=== PATIENT | male | born 1955 | race American Indian/Alaskan Native ===

== ENCOUNTER 2022-06-02 08:25 | Day surgery (SDC) | payer MEDICARE, OTHER ==
[~2022-06-02] VITALS: Ht 167.6 cm; Wt 110.7 kg
[~2022-06-02 08:25] MED LIST: ANTIFUNGAL30 GM TOP; ASPIRIN EC81 MG PO; FENOFIBRATE54 MG PO; LISINOPRIL2.5 MG PO; LORATADINE10 MG PO; OMEGA-31000 MG PO; PERCOCET 7.5-31 EACH PO; TERBINAFINE HC250 MG PO; VITAMIN D5000 UNIT PO
[2022-06-02] MEDS ORDERED: GLIPIZIDE10 MG PO (08:52)
[2022-06-02] MEDS ORDERED: [UNRECOGNIZED DRUG - OTHER] (08:53)
[2022-06-02] MEDS ORDERED: ECHINACEA380 MG PO (08:54)
[2022-06-02] MEDS ORDERED: BEE POLLEN550 MG PO (08:54)
[2022-06-02] MEDS ORDERED: OZEMPIC1 MG/0.71 (09:05)
--- NOTE | 2022-06-02 10:27 | NUR ---
06/02/22 1027 Sheets,Rachel 1021 PT ARRIVED TO PACU ON 2L VIA MASK, PT WAKES EASILY AND DENIES CONCERNS. PT EASILY FALLS BACK TO SLEEP, RESP EVEN AND UNLABORED.
--- NOTE | 2022-06-03 08:17 | OR ---
[facility] [address], [place] [address] Signed DATE OF OPERATION: 06/02/2022 SURGEON: Tanisha Azevedo MD PREOPERATIVE DIAGNOSIS: Screening. POSTOPERATIVE DIAGNOSES: 1. Minimal sigmoid diverticulosis. 2. Minimal internal hemorrhoids. 3. A 7 mm polyp, mid right colon (snare). 4. Base of polyp, mid right colon. 5. A 4 mm polyp at distal transverse colon/130 cm. 6. A 4 mm polyp at proximal left colon/110 cm. 7. A 4 mm polyp at 80 cm/mid left colon. PROCEDURE: Colonoscopy with snare polypectomy and hot biopsy. ESTIMATED BLOOD LOSS: None. INDICATIONS: Kerri is a 67-year-old obese, diabetic gentleman with hypertension, asked to see me for a followup screening colonoscopy. He is pretty certain Dr. Rebollar helped him with a negative colonoscopy around age 57 in 2010. He currently has no lower GI complaints. There is no family history of colon cancer or polyps. In the office, I gave Melvin pamphlet on colonoscopy . He understands the nature of the test. There is risk including, but not limited to gas, bloating, crampy abdominal pain, bleeding, perforation requiring surgery, and missed diagnosis. We also discussed the need for IV conscious sedation. He had expressed understanding and wished to proceed. DESCRIPTION OF PROCEDURE: Kerri was taken into our endoscopy suite and placed in the left lateral decubitus position. He was given 4 mg of Versed and 150 mcg of fentanyl to cover the case. A digital rectal exam was performed and this was unremarkable. He had good sphincter tone. No external hemorrhoids. The adult colonoscope was introduced and advanced all around into the cecum under direct visualization of camera without difficulty. The scope was slowly withdrawn. We could easily see the appendiceal orifice and ileocecal valve. We used the snare to divide the polyp in the mid right colon. We then took a Electronically Signed By: TANISHA AZEVEDO MD 06/03/22 0817 PATIENT NAME: KERRI ROBERSON OPERATIVE REPORT DATE OF : 59 REPORT #: [id number] PHYSICIAN: TANISHA AZEVEDO MD PCP: BETTY REBOLLAR MD REPORT IS CONFIDENTIAL AND NOT TO BE RELEASED WITHOUT AUTHORIZATION [facility] [address] [place], [place] [address] Signed couple biopsies of the base with a hot biopsy forceps. The polyp moved over to the base of the ileocecal valve, which we suctioned through the scope and caught in our canister. The other polyps were removed with the help of hot biopsy forceps. We did see a few diverticula in the left colon. They were moderate in size, few in number, and scattered about. Once in the rectum, the scope had been retroflexed. He has minimal internal hemorrhoid columns. After this, the gas was suctioned out. The colonoscope removed. Kerri tolerated the procedure quite well. RECOMMENDATIONS: I will see Kerri back in my office in 7 to 14 days to review his results. Tanisha Azevedo MD ALB/MODL /[id number] cc: [facility] Chart Patient Tanisha Azevedo MD Copies: [facility] TANISHA AZEVEDO MD ~ Electronically Signed By: TANISHA AZEVEDO MD 06/03/22 0817 PATIENT NAME: KERRI ROBERSON OPERATIVE REPORT DATE OF : 59 REPORT #: [id number] PHYSICIAN: TANISHA AZEVEDO MD PCP: BETTY REBOLLAR MD REPORT IS CONFIDENTIAL AND NOT TO BE RELEASED WITHOUT AUTHORIZATION
--- NOTE | 2022-06-04 17:53 | PATH ---
[facility] [address], [place] [address] Signed SPECIMEN(S): A MID ASCENDING/RIGHT COLON POLYP SPECIMEN(S): B MID ASCENDING/RIGHT COLON POLYP SPECIMEN(S): C DISTAL TRANSVERSE COLON POLYP AT 130 CM SPECIMEN(S): D DESCENDING/LEFT COLON POLYP AT 110 CM SPECIMEN(S): E DESCENDING/LEFT COLON POLYP AT 80 CM SPECIMEN SOURCE: A. MID ASCENDING/RIGHT COLON POLYP B. MID ASCENDING/RIGHT COLON POLYP C. DISTAL TRANSVERSE COLON POLYP AT 130 CM D. DESCENDING/LEFT COLON POLYP AT 110 CM E. DESCENDING/LEFT COLON POLYP AT 80 CM CLINICAL HISTORY: Screening colonoscopy. Postop diagnosis: Diverticulosis, colon polyps, internal hemorrhoids FINAL PATHOLOGIC DIAGNOSIS: A. Colon, mid ascending/right, polypectomy: - Tubular adenoma. B. Colon, mid ascending/right, polypectomy #2: - Tubular adenoma. C. Colon, distal transverse at 130 cm, polypectomy: - Colonic mucosa with no significant pathologic changes. D. Colon, descending/left at 110 cm, polypectomy: - Tubular adenoma. E. Colon, descending/left at 80 cm, polypectomy: - Tubular adenoma. BRP:slc:[id number] MICROSCOPIC EXAMINATION: Histologic sections of all submitted blocks are examined by light microscopy. These findings, together with the gross examination, support the pathologic diagnosis. GROSS DESCRIPTION: Five specimens are received in five containers, labeled "DQ." A. The specimen, labeled "mid ascending/right colon," is received in formalin and consists of seven sol soft tissue fragments that measure 0.1 to 0.5 cm in greatest dimension. The specimen is entirely submitted in cassette (A1). PATIENT NAME: KERRI ROBERSON PATHOLOGY DATE OF : 59 REPORT #: [id number] PHYSICIAN: MARK BAER PCP: BETTY REBOLLAR MD REPORT IS CONFIDENTIAL AND NOT TO BE RELEASED WITHOUT AUTHORIZATION [facility] [address], [place] [address] Signed B. The specimen, labeled "mid ascending/right colon," is received in formalin and consists of four sol soft tissue fragments that measure 0.1 to 0.2 cm in greatest dimension. The specimen is entirely submitted in cassette (B1). C. The specimen, labeled "distal transverse colon," is received in formalin and consists of one sol soft tissue fragment that measures 0.6 cm in greatest dimension. The specimen is entirely submitted in cassette (C1). D. The specimen, labeled "descending/left colon polyp," is received in formalin and consists of one sol soft tissue fragment that measures 0.3 cm in greatest dimension. The specimen is entirely submitted in cassette (D1). E. The specimen, labeled "descending/left colon polyp," is received in formalin and consists of one sol soft tissue fragment that measures 0.3 cm in greatest dimension. The specimen is entirely submitted in cassette (E1). HH (under the direct supervision of a pathologist) The Gross Description was prepared using a voice recognition system. The report was reviewed for accuracy; however, sound-alike word errors, addition and/or deletions may occur. If there is any question about this report, please contact Client Services. PERFORMING LABORATORY: The technical component was performed by [employer], [address] [place] [id number] (CLIA# [id number]). Professional interpretation was performed by [employer], [address] [place] [id number] (CLIA# [id number]). Diagnostician: Francis Calvillo MD Pathologist Electronically Signed 06/04/2022 Copies: ~ PATIENT NAME: KERRI ROBERSONNE PATHOLOGY DATE OF : 59 REPORT #: [id number] PHYSICIAN: MARK PATHOLOGY PCP: BETTY REBOLLAR MD REPORT IS CONFIDENTIAL AND NOT TO BE RELEASED WITHOUT AUTHORIZATION
== END 2022-06-02 11:00 | disposition home or self-care (01) ==
LOC: OPS 08:25 → DS 08:25 → OPS 09:45
PROVIDERS: ATTEND Colon & Rectal Surgery
PROC: 0DBL8ZZ Excision of Transverse Colon, Via Natural or Artificial Opening Endoscopic (ICD-10-PCS; 2022-06-02)
PROC: 0DBF8ZZ Excision of Right Large Intestine, Via Natural or Artificial Opening Endoscopic (ICD-10-PCS; 2022-06-02)
PROC: 0DBG8ZZ Excision of Left Large Intestine, Via Natural or Artificial Opening Endoscopic (ICD-10-PCS; principal; 2022-06-02 09:45)
DX: Z12.11 Encounter for screening for malignant neoplasm of colon (principal); E11.9 Type 2 diabetes mellitus without complications; E78.5 Hyperlipidemia, unspecified; I10 Essential (primary) hypertension; Z88.8 Allergy status to other drugs, medicaments and biological substances; K57.30 Diverticulosis of large intestine without perforation or abscess without bleeding; K64.8 Other hemorrhoids; E66.9 Obesity, unspecified; Z68.39 Body mass index [BMI] 39.0-39.9, adult; D12.2 Benign neoplasm of ascending colon; D12.4 Benign neoplasm of descending colon; D12.3 Benign neoplasm of transverse colon
CPT/HCPCS: 99153; G0500; J2250; J3010; J7121

== ENCOUNTER 2024-05-18 17:12 | Emergency (ER) | payer MEDICARE, OTHER ==
[~2024-05-18] VITALS: Ht 167.6 cm; Wt 97.8 kg
[~2024-05-18 17:12] MED LIST changes: +BEE POLLEN550 MG PO; +ECHINACEA380 MG PO; +GLIPIZIDE10 MG PO; +OZEMPIC1 MG/0.71; +[UNRECOGNIZED DRUG - OTHER]
[2024-05-18] MEDS ORDERED: JARDIANCE10 MG PO (20:43)
[2024-05-18] MEDS ORDERED: ATORVASTATIN CA40 MG PO (20:43)
[2024-05-18] MEDS ORDERED: OZEMPIC2 MG/0.75 SUB-Q (20:43)
[2024-05-18] MEDS ORDERED: AMOX TR-K CLV1 EAC1 PO (21:57)
[2024-05-18] MEDS ORDERED: AMOXICILLIN/CLAVULANATE K 875 MG HOME.PACK PO ONE (22:00)
[2024-05-18 22:24] VITALS: BP 128/71
== END 2024-05-18 22:24 | disposition home or self-care (01) ==
LOC: ED 17:12
DX: S61.012A Laceration without foreign body of left thumb without damage to nail, initial encounter (principal); E11.9 Type 2 diabetes mellitus without complications; Z88.8 Allergy status to other drugs, medicaments and biological substances; Z79.85 Long-term (current) use of injectable non-insulin antidiabetic drugs; Z79.84 Long term (current) use of oral hypoglycemic drugs; Z79.899 Other long term (current) drug therapy; W23.0XXA Caught, crushed, jammed, or pinched between moving objects, initial encounter
CPT/HCPCS: 12001; 73140; 99283